=== PATIENT | female | born 1980 | race Caucasian/White ===

== ENCOUNTER → 2016-06-20 | Outpatient (CLI) | payer BC ==
[~2016-06-20] MED LIST: BCPILLS PO; CELE100C PO; GLC500; HYDR0.5T PO; HYDR200T5 PO; PRENTAB26 PO; VALA500T60 PO
== END | disposition home or self-care (01) ==
LOC: C.LAB 10:11
PROVIDERS: ATTEND Obstetrics & Gynecology
DX: Z34.01 Encounter for supervision of normal first pregnancy, first trimester (principal)

== ENCOUNTER → 2016-06-24 | Outpatient (CLI) | payer BC ==
[2016-06-28 14:42] LABS: CHLAMYDIA TRACH RNA*** NOT DETECTED (NOT DETECTED); GC (NEIS GONORRHOEAE)RNA** NOT DETECTED (NOT DETECTED)
== END | disposition home or self-care (01) ==
LOC: C.LABSPEC 14:38
PROVIDERS: ATTEND Obstetrics & Gynecology
DX: Z34.01 Encounter for supervision of normal first pregnancy, first trimester (principal)

== ENCOUNTER → 2016-07-04 | Outpatient (CLI) | payer BC ==
[2016-07-04 17:12] LABS: BASO % 0.2 %; BASO ABS # 0.02 K/uL (0-0.2); COMPLETE YES; EOS % 1.5 %; HEMATOCRIT 34.6 % (37-47); IG% 0.3 %; LYMPH % 19.3 %; LYMPH ABS # 1.89 K/uL (1.2-3.4); MEAN CORPUSCULAR HEMOGLOBIN 29.8 pg (25-34); MEAN CORPUSCULAR HGB CONC 33.8 g/dl (32-36); MEAN PLATELET VOLUME 10.5 fL (7.4-10.4); MONO % 6.4 %; NEUT % 72.3 %; PLATELET COUNT 250 K/uL (130-400); RED BLOOD COUNT 3.93 M/uL (4.2-5.4); WHITE BLOOD COUNT 9.78 K/uL (4.8-10.8)
[2016-07-04 17:23] LABS: ALT/SGPT 16 U/L (12-78); AST/SGOT 15 U/L (15-37); CREATININE 0.62 mg/dl (0.60-1.20)
[2016-07-04 17:25] LABS: ALKALINE PHOSPHATASE 69 U/L (45-117)
== END | disposition home or self-care (01) ==
LOC: C.LAB 16:20
PROVIDERS: ATTEND Anesthesiology
DX: Z79.899 Other long term (current) drug therapy (principal)

== ENCOUNTER → 2016-07-25 | Outpatient (CLI) | payer BC | END | disposition home or self-care (01) | LOC: C.LABSPEC 15:36 | PROVIDERS: ATTEND Obstetrics & Gynecology | DX: J02.9 Acute pharyngitis, unspecified (principal) ==

== ENCOUNTER → 2016-08-20 | Outpatient (CLI) | payer BC ==
[2016-08-20 09:37] LABS: BASO % 0.2 %; BASO ABS # 0.02 K/uL (0-0.2); COMPLETE YES; HEMATOCRIT 34.4 % (37-47); IG% 0.5 %; LYMPH % 14.6 %; LYMPH ABS # 1.41 K/uL (1.2-3.4); MEAN CELL VOLUME 87.8 fL (80-100); MEAN CORPUSCULAR HEMOGLOBIN 29.1 pg (25-34); MEAN CORPUSCULAR HGB CONC 33.1 g/dl (32-36); MEAN PLATELET VOLUME 9.9 fL (7.4-10.4); MONO % 4.2 %; NEUT % 79.5 %; PLATELET COUNT 234 K/uL (130-400); RED BLOOD COUNT 3.92 M/uL (4.2-5.4); WHITE BLOOD COUNT 9.65 K/uL (4.8-10.8)
[2016-08-20 11:43] LABS: GTGD 50 Grams
== END | disposition home or self-care (01) ==
LOC: C.LAB 07:57
PROVIDERS: ATTEND Obstetrics & Gynecology
DX: Z34.02 Encounter for supervision of normal first pregnancy, second trimester (principal)

== ENCOUNTER 2016-12-23 12:57 | Outpatient (CLI) | payer BC ==
[~2016-12-23] VITALS: Ht 165.1 cm; Wt 122.5 kg
[~2016-12-23 12:57] MED LIST changes: -GLC500; -HYDR200T5 PO; -PRENTAB26 PO; -VALA500T60 PO
[2016-12-23] MEDS ORDERED: PRENTAB26 PO (13:25)
[2016-12-23] MEDS ORDERED: GLC500 (13:25)
[2016-12-23 13:28] VITALS: Ht 165.1 cm; Wt 122.5 kg
--- NOTE | 2016-12-23 14:28 | DIAGNOSTIC IMAGING REPORT ---
LIMITED (US) HISTORY: 36 years-old Female bleeding at 34 weeks acute vaginal bleeding with . Initial exam. COMPARISON: None available. TECHNIQUE: Multiple real-time sonographic images of the deep pelvic structures were obtained transabdominally and transvaginally assessing grayscale appearance, M-mode analysis. FINDINGS: Single living intrauterine fetus is noted in a cephalic presentation. JOSE measures 15.8 cm. Heart rate is measured at 137 bpm. Cervix length measures 4.58 cm. Placenta appears normal. IMPRESSION: 1. Single living intrauterine gestation in cephalic presentation. 2. Normal sonographic appearance of the placenta and cervix. The above report was generated using voice recognition software. It may contain grammatical, syntax or spelling errors. Electronically signed by: Johny Everett M.D. 12/23/2016 2:27 PM Dictated Date/Time: 12/23/2016 2:24 PM
--- NOTE | 2016-12-23 14:36 | HISTORY & PHYSICAL EXAMINATION ---
DATE OF ADMISSION: 12/23/2016 CHIEF COMPLAINT: Abdominal tightness and vaginal bleeding. HISTORY OF PRESENT ILLNESS: The patient is a 36-year-old 1, para 0. General health is complicated by PCOD. Her due date for this is 02/02/2017. She has had no problems but she called stating she had vaginal bleeding and spotting and abdominal tightness. She was told to come to the [facility] for monitoring and evaluation. PAST MEDICAL HISTORY: She has no known drug allergies. PAST SURGICAL HISTORY: She had her right knee operated on. She had diagnostic laparoscopy and a D&C. MEDICAL HISTORY: She is on metformin. ALLERGIES: She has no known drug allergies. SOCIAL HISTORY: No smoking, no alcohol intake. Works at [employer]. FAMILY HISTORY: Mom is 68 in good health. Father 78 in good health, 1 brother in good health. REVIEW OF SYSTEMS: HEAD: No symptoms of frequent or severe headaches. EYES: No symptoms of blurred vision, double vision. EARS: No symptoms of frequent ear infection, difficulty hearing. NOSE: No symptoms of frequent nosebleeds, difficulty breathing through her nose. THROAT: No symptoms of frequent or severe sore throats, difficulty swallowing. RESPIRATORY SYSTEM: No history of asthma, chest pain, shortness of breath. PHYSICAL EXAMINATION: GENERAL: Well-developed, well-nourished 36-year-old white female; alert, oriented x3 and cooperative. No acute distress, appears stated age. EYES: Conjunctivae are pink. Sclerae white. No evidence of jaundice. EARS: Had normal light reflex bilaterally. HEART: Regular rhythm. S1 and S2 are normal. LUNGS: Clear to auscultation and percussion. ABDOMEN: Soft and nontender. There are no tender areas. PELVIC: Cervix to be long, closed, posterior, and uneffaced. On pelvic exam, vaginal bleeding was minimal. MUSCULOSKELETAL: Revealed no calf tenderness. IMPRESSIONS OF THIS CASE: Intrauterine at 34 weeks gestation. History of polycystic ovarian disease, rule out placenta previa, rule out early labor.
== END 2016-12-23 14:48 | disposition home or self-care (01) ==
LOC: C.OPB 12:57 → C.LD 12:57 → C.OPB 14:48
PROVIDERS: ATTEND Obstetrics & Gynecology
DX: O46.93 Antepartum hemorrhage, unspecified, third trimester (principal); R10.9 Unspecified abdominal pain; O09.513 Supervision of elderly primigravida, third trimester; E28.2 Polycystic ovarian syndrome; Z3A.34 34 weeks gestation of pregnancy

== ENCOUNTER 2017-01-20 15:26 | Outpatient (CLI) | payer BC ==
[~2017-01-20 15:26] MED LIST changes: -BCPILLS PO; -CELE100C PO; +GLC500; -HYDR0.5T PO; +PRENTAB26 PO
[2017-01-20] MEDS ORDERED: VALA500T60 PO (16:37)
[2017-01-21] MEDS ORDERED: HYDR200T5 PO (19:56)
== END 2017-01-20 16:18 | disposition home or self-care (01) ==
LOC: C.OPB 15:26 → C.LD 15:26 → C.OPB 16:18
PROVIDERS: ATTEND Obstetrics & Gynecology
DX: O99.89 Other specified diseases and conditions complicating pregnancy, childbirth and the puerperium (principal); R03.0 Elevated blood-pressure reading, without diagnosis of hypertension; Z3A.00 Weeks of gestation of pregnancy not specified

== ENCOUNTER 2017-01-21 18:25 | Inpatient (IN) | payer BC ==
[~2017-01-21] VITALS: Ht 165.1 cm; Wt 133.4 kg
[~2017-01-21 18:25] MED LIST changes: +VALA500T60 PO
[2017-01-21] MEDS ORDERED: HYDR200T5 PO (19:56)
[2017-01-21 20:03] VITALS: Ht 165.1 cm; Wt 133.4 kg
[2017-01-21] MEDS ORDERED: LACTATED RINGER'S 1000ML 1,000 ML IV PRN (20:32)
[2017-01-21 20:58] LABS: HEMATOCRIT 34.2 % (37-47); MEAN CELL VOLUME 84.9 fL (80-100); MEAN CORPUSCULAR HGB CONC 34.2 g/dl (32-36); MEAN PLATELET VOLUME 10.1 fL (7.4-10.4); PLATELET COUNT 253 K/uL (130-400); RED BLOOD COUNT 4.03 M/uL (4.2-5.4); WHITE BLOOD COUNT 13.25 K/uL (4.8-10.8)
[2017-01-21] MEDS ORDERED: PENICILLIN G POTASSIUM IV 6 MU in DEXTROSE 5% 250ML 250 ML IV ONE (21:00)
[2017-01-21] MEDS ORDERED: MISOPROSTOLTAB 50 MCG TAB PO ONE (21:00)
[2017-01-21] MEDS ORDERED: INFLUENZA ADMINISTRATION CHARGE ONE (21:30)
[2017-01-21] MEDS ORDERED: INFLUENZA VIRUS QUAD VACCINE 0.5 ML SYR IM. ONE (21:30)
[2017-01-22] MEDS: LACTATED RINGER'S 1000ML 1,000 ML IV SCH (02:04)
[2017-01-22] MEDS: PENICILLIN G POTASSIUM IV 3 MU in DEXTROSE 5% 100ML 100 ML IV PRN ×5 (06:04→21:32)
[2017-01-22] MEDS ORDERED: NURSING VERBAL MED ORDER ONE (14:30)
[2017-01-22] MEDS ORDERED: DINOPROSTONE 10 MG INSERT PV ONE (15:00)
[2017-01-22] MEDS ORDERED: MISOPROSTOLTAB 50 MCG TAB PO ONE (20:45)
[2017-01-23] MEDS ORDERED: MISOPROSTOLTAB 50 MCG TAB PO ONE ×2 (01:00→07:30)
[2017-01-23] MEDS: PENICILLIN G POTASSIUM IV 3 MU in DEXTROSE 5% 100ML 100 ML IV PRN ×6 (01:37→22:19)
[2017-01-23] MEDS ORDERED: LACTATED RINGER'S 1000ML 500 ML IV PRN ×2 (14:31→21:08)
[2017-01-23] MEDS ORDERED: OXYTOCIN 30 UNITS/500ML NSS IV PRN (14:45)
[2017-01-23] MEDS ORDERED: BUTORPHANOL TARTRATE 1 MG/ML VIAL ONE (18:01)
[2017-01-23] MEDS ORDERED: BUTORPHANOL TARTRATE 1 MG/ML VIAL IV PRN (18:15)
[2017-01-23] MEDS ORDERED: BUPIVACAINE 0.25% 30 ML VIAL ONE (20:12)
[2017-01-23] MEDS ORDERED: FENTANYL CITRATE INJ 50 MCG/1 ML 2 ML VIAL ONE (20:13)
[2017-01-23] MEDS ORDERED: EpHEDrine SULFATE INJ 50 MG/ML AMP ONE (20:13)
[2017-01-23] MEDS ORDERED: FENTANYL 2MCG/ML ROPIV 1.25MG/ML 100ML BAG EPI ONE (20:13)
[2017-01-23] MEDS ORDERED: NALOXONE HCL INJ 1 MG in SODIUM CHLORIDE 0.9% 1000ML 1,000 ML IV PRN ×4 (21:08)
[2017-01-23] MEDS ORDERED: PROMETHAZINE HCL INJ 25 MG in SODIUM CHLORIDE 0.9% 50ML 50 ML IV PRN (21:15)
[2017-01-23] MEDS ORDERED: EpHEDrine SULFATE INJ 50 MG/ML AMP IV PRN (21:15)
[2017-01-23] MEDS ORDERED: NALBUPHINE HCL INJ 10 MG/ML AMP IV PRN (21:15)
[2017-01-23] MEDS ORDERED: NALOXONE HCL INJ 0.4 MG/1 ML VIAL/CARP IV PRN (21:15)
[2017-01-23] MEDS ORDERED: ONDANSETRON INJ 2 MG/ML 2 ML VIAL IV PRN (21:15)
[2017-01-23] MEDS ORDERED: DiphenhydrAMINE HCL 50 MG/ML VIAL IV PRN (21:15)
[2017-01-23] MEDS ORDERED: FENTANYL 2MCG/ML ROPIV 1.25MG/ML 100ML BAG EPI PRN (21:15)
[2017-01-23] MEDS: LACTATED RINGER'S 1000ML 1,000 ML IV SCH (21:32)
[2017-01-24] VITALS (19 sets, daily range): BP systolic 116–127; BP diastolic 75–87; PULSE 95–106; TEMP 37–37.3; O2SAT 97–100
[2017-01-24] MEDS ORDERED: LIDOCAINE/EPINEPHRINE 2% 1:200,000 20 ML SDV ONE (02:36)
[2017-01-24] MEDS ORDERED: FENTANYL CITRATE INJ 50 MCG/1 ML 2 ML VIAL ONE (02:36)
[2017-01-24] MEDS ORDERED: CITRIC ACID/SODIUM CITRATE 15 ML UDC ONE (02:40)
[2017-01-24] MEDS ORDERED: CITRIC ACID/SODIUM CITRATE 15 ML UDC PO STA (02:42)
[2017-01-24] MEDS ORDERED: CEFOXITIN IV 2,000 MG in DEXTROSE 5% 50ML 50 ML IV STA (02:43)
[2017-01-24] MEDS ORDERED: OXYTOCIN INJ 10 UNITS/ML VIAL ONE (03:16)
[2017-01-24] MEDS ORDERED: MORPHINE SULFATE PF 2MG/2ML SYR ONE (03:29)
--- NOTE | 2017-01-24 04:10 | HISTORY & PHYSICAL EXAMINATION ---
DATE OF ADMISSION: 01/21/2017 CHIEF COMPLAINT: Toxemia of , nonreassuring heart rate tracing. HISTORY OF PRESENT ILLNESS: The patient is a 36-year-old 1, para 0. She has a history of polycystic ovarian disease. Her has been well dated. Her due date is 02/03/2017. She was brought in for induction after diagnosis of toxemia of . She ran a pressure of 140/90 for over a week and this was associated with 1+ protein and this was present for well over a week on multiple visits and it was despite the use of decreased activity and bed rest. She was brought in for induction at 38+ weeks, was given multiple medications for induction. I think, we started with oral Cytotec, then we went , then we went back to the Cytotec. On induction, her cervix was very unfavorable, was closed. We eventually got the cervix to open. Membranes were ruptured. At that time, fluid was clear. She then went to IV Pitocin stimulation. We also used an intrauterine pressure catheter and we were able to develop adequate contractions on the pressure catheter. She did make it up to about 7 cm and then had an arrest of labor and eventually began to have nonreassuring heart rate tracing with decelerations after each and every contraction. The Pitocin had to be turned off, oxygen was given and a was subsequently called. PAST MEDICAL HISTORY: She has no known drug allergies. PAST SURGICAL HISTORY: She had a diagnostic laparoscopic and a D&C. She had right knee surgery. MEDICAL HISTORY: She has history of PCOD, occasional migraines. SOCIAL HISTORY: No smoking. No alcohol intake. Works for [employer]. FAMILY HISTORY: Mom is 68 in good health, dad 70 in good health. One brother in good health. REVIEW OF SYSTEMS: Occasional migraine. PHYSICAL EXAMINATION: GENERAL: Well-developed, well-nourished 36-year-old white female, alert, oriented x3, and cooperative in no acute distress, appears stated age. EYES: Conjunctivae are pink. Sclerae white. No evidence of jaundice. EARS: Ears had normal light reflex bilaterally. NOSE: Nose had normal mucosa. Septum is midline. There were no polyps. THROAT: No erythema or evidence of infection. Teeth are in good state of repair. HEAD: Normocephalic, normal distribution of hair. NECK: Supple. Trachea midline. Thyroid is not enlarged. There is no adenopathy appreciated. Both carotids are of good intensity. CHEST: Clear to auscultation and percussion. No wheezes, rales or rhonchi appreciated. HEART: Had regular rhythm. S1 and S2 are normal. BREASTS: Normal. ABDOMEN: Soft and nontender. PELVIC: Revealed the cervix to be 100% effaced, 7 cm dilated, large amount of molding, -1 to -2 station. MUSCULOSKELETAL: Revealed no calf tenderness. IMPRESSIONS OF THIS CASE: Toxemia of , arrest of labor, and nonreassuring heart rate tracings.
[2017-01-24] MEDS ORDERED: SODIUM CHLORIDE 0.9% 1000ML 1,000 ML IV PRN (04:34)
[2017-01-24] MEDS ORDERED: NALOXONE HCL INJ 0.08 MG in SYRINGE 1.8 ML IV PRN (04:34)
[2017-01-24] MEDS ORDERED: LACTATED RINGER'S 1000ML 500 ML IV PRN (04:34)
[2017-01-24] MEDS ORDERED: NALOXONE HCL INJ 1 MG in SODIUM CHLORIDE 0.9% 1000ML 1,000 ML IV PRN ×4 (04:34)
--- NOTE | 2017-01-24 04:39 | Anesthesiology Progress Note ---
Anesthesia Post Op Note Date & Time Jan 24, 2017 at 04:39 Vital Signs Pain Intensity: 0.0 Notes Mental Status: alert / awake / arousable, participated in evaluation Pt Amnestic to Procedure: No Nausea / Vomiting: adequately controlled Pain: adequately controlled Airway Patency, RR, SpO2: stable & adequate BP & HR: stable & adequate Hydration State: stable & adequate Neuraxial Anesthesia: was administered, sensory block is resolving Anesthetic Complications: no major complications apparent
--- NOTE | 2017-01-24 04:39 | Anesthesia Procedure Note ---
Anesthesia Epidural Removal Nt Date & Time Jan 24, 2017 at 04:39 Vital Signs Pain Intensity: 0.0 Notes Mental Status: alert / awake / arousable, participated in evaluation Nausea / Vomiting: adequately controlled Pain: adequately controlled Airway Patency, RR, SpO2: stable & adequate BP & HR: stable & adequate Hydration State: stable & adequate Neuraxial Anesthesia: was administered Anesthetic Complications: no major complications apparent, pt satisfied with anesthetic care Epidural: removed without complications, with tip intact
[2017-01-24] MEDS ORDERED: MoRPHine SULFATE PF 1 MG/ML 10 ML AMP/VIAL EPI PRN (04:45)
[2017-01-24] MEDS ORDERED: DiphenhydrAMINE HCL 50 MG/ML VIAL IV PRN (04:45)
[2017-01-24] MEDS ORDERED: KETOROLAC TROMETHAMINE 30 MG/ML VIAL IV. PRN (04:45)
[2017-01-24] MEDS ORDERED: NALOXONE HCL 0.4 MG/1 ML VIAL/CARP IV PRN (04:45)
[2017-01-24] MEDS ORDERED: PROMETHAZINE HCL INJ 25 MG in SODIUM CHLORIDE 0.9% 50ML 50 ML IV PRN (04:45)
[2017-01-24] MEDS ORDERED: NALBUPHINE HCL INJ 10 MG/ML AMP IV PRN (04:45)
[2017-01-24] MEDS ORDERED: DC INTRASPINAL MORPHINE SCH (04:45)
[2017-01-24] MEDS ORDERED: ONDANSETRON INJ 2 MG/ML 2 ML VIAL IV PRN (04:45)
[2017-01-24] MEDS ORDERED: NO NARCOTICS OR SEDATIVES SCH (04:45)
[2017-01-24] MEDS ORDERED: EpHEDrine SULFATE INJ 50 MG/ML AMP IV PRN (04:45)
[2017-01-24] MEDS ORDERED: NURSING VERBAL MED ORDER ONE ×4 (05:45→23:45)
[2017-01-24] MEDS ORDERED: OXYTOCIN INJ 20 UNITS in LACTATED RINGER'S 1000ML 1,000 ML IV SCH (06:00)
[2017-01-24] MEDS ORDERED: LACTATED RINGER'S 1000ML 1,000 ML IV SCH (15:30)
[2017-01-25] MEDS: IBUPROFEN 600 MG TAB PO PRN ×4 (00:27→23:32)
[2017-01-25] MEDS: OXYCODONE/ACETAMINOPHEN 5-325 TAB PO PRN ×4 (00:28→23:31)
[2017-01-25 05:00] VITALS: TEMP 36.8
--- NOTE | 2017-01-25 08:39 | Progress Note ---
Subjective Jan 25, 2017. Subjective conversation w/ patient Ambulation: ambulating normally Voiding: no voiding problems Passing Gas: Yes Diet Tolerance: Regular Diet Lochia: Small Feeding Type: Breast Feeding Review of Systems Constitutional: + fever Objective Vital Signs Date Time Temp Pulse Resp B/P (MAP) Pulse Ox O2 Delivery O2 Flow Rate FiO2 01/25/17 05:00 36.8 01/24/17 23:05 98 Room Air 01/24/17 23:05 37.3 106 20 126/87 (100) 98 Room Air 01/24/17 22:30 18 98 01/24/17 21:30 20 98 01/24/17 20:30 18 99 01/24/17 20:00 37.0 106 18 125/75 (92) 98 Room Air 01/24/17 19:30 17 98 01/24/17 18:30 16 99 01/24/17 17:30 16 99 01/24/17 16:30 16 99 01/24/17 16:00 99 Room Air 01/24/17 16:00 37.2 95 18 116/78 (91) 99 Room Air 01/24/17 15:30 16 99 01/24/17 14:30 18 99 01/24/17 13:30 18 99 01/24/17 12:30 18 99 01/24/17 12:00 37.1 96 18 119/77 (91) 99 Room Air 01/24/17 11:30 18 100 01/24/17 10:30 18 99 01/24/17 09:30 18 97 Physical Exam General Appearance: WELL-APPEARING Abdomen: normal bowel sounds, non tender Fundus: Firm, Non-Tender Incision Description: Clean, Dry & Intact Extremities: no pedal edema, no calf tenderness Assessment and Plan Post-Op Day#: 1 Continue Routine Care: bandage removed
[2017-01-25 08:45] VITALS: BP 110/70; PULSE 76; TEMP 36.5
[2017-01-25 15:00] VITALS: BP 118/76; PULSE 94; TEMP 36.9
[2017-01-25] MEDS ORDERED: NURSING VERBAL MED ORDER ONE (17:00)
[2017-01-25] MEDS: HYDROCORTISONE 1% CR 30 GM TUBE EXT PRN (23:37)
[2017-01-25 23:40] VITALS: BP 126/73; PULSE 91; TEMP 36.6; O2SAT 96
[2017-01-26] MEDS: OXYCODONE/ACETAMINOPHEN 5-325 TAB PO PRN ×3 (06:25→23:51)
[2017-01-26] MEDS: IBUPROFEN 600 MG TAB PO PRN ×3 (06:25→23:50)
[2017-01-26 07:50] VITALS: BP 122/78; PULSE 80; TEMP 36.4
--- NOTE | 2017-01-26 12:15 | Progress Note ---
Subjective Jan 26, 2017. Subjective conversation w/ patient Ambulation: ambulating normally Voiding: no voiding problems Passing Gas: Yes Diet Tolerance: Regular Diet Lochia: Small Feeding Type: Breast Feeding Review of Systems Constitutional: + fever Objective Vital Signs Date Time Temp Pulse Resp B/P (MAP) Pulse Ox O2 Delivery O2 Flow Rate FiO2 01/26/17 07:50 36.4 80 16 122/78 (93) Room Air 01/26/17 07:50 Room Air 01/25/17 23:40 36.6 91 18 126/73 (90) Room Air 01/25/17 23:40 96 Room Air 01/25/17 15:00 36.9 94 18 118/76 (90) Room Air 01/25/17 15:00 Room Air Physical Exam General Appearance: WELL-APPEARING Respiratory/Chest: lungs clear Fundus: Firm, Non-Tender Incision Description: Clean, Dry & Intact Extremities: no pedal edema, no calf tenderness Assessment and Plan Post-Op Day#: 2
[2017-01-26 15:30] VITALS: BP 132/80; PULSE 96; TEMP 36.6
[2017-01-26] MEDS: DOCUSATE SODIUM 100 MG CAP PO PRN ×2 (15:44→19:57)
[2017-01-26] MEDS: HYDROCORTISONE 1% CR 30 GM TUBE EXT PRN ×2 (15:44→19:57)
[2017-01-26 23:40] VITALS: BP 117/76; PULSE 80; TEMP 36.7
[2017-01-27 06:31] LABS: HEMATOCRIT 24.3 % (37-47)
[2017-01-27 07:35] VITALS: BP 112/76; PULSE 78; TEMP 36.6; O2SAT 99
[2017-01-27] MEDS: IBUPROFEN 600 MG TAB PO PRN (08:32)
--- NOTE | 2017-01-27 09:17 | Progress Note ---
Subjective Jan 27, 2017. Subjective conversation w/ patient Ambulation: ambulating normally Voiding: no voiding problems Passing Gas: Yes Diet Tolerance: Regular Diet Lochia: Small Feeding Type: Breast Feeding Review of Systems Constitutional: + fever Objective Vital Signs Date Time Temp Pulse Resp B/P (MAP) Pulse Ox O2 Delivery O2 Flow Rate FiO2 01/26/17 23:40 Room Air 01/26/17 23:40 36.7 80 18 117/76 (90) Room Air 01/26/17 15:30 Room Air 01/26/17 15:30 Room Air 01/26/17 15:30 36.6 96 18 132/80 (97) Room Air 01/26/17 15:30 36.6 96 18 132/80 (97) Room Air Physical Exam General Appearance: WELL-APPEARING Respiratory/Chest: lungs clear Abdomen: normal bowel sounds, non tender Fundus: Firm, Non-Tender Incision Description: Clean, Dry & Intact Extremities: no pedal edema, no calf tenderness Laboratory Results Last 24 Hours Test 01/27/17 06:16 Hemoglobin 8.1 g/dL Hematocrit 24.3 % Assessment and Plan Post-Op Day#: 3
--- NOTE | 2017-01-27 09:19 | Discharge Instructions ---
Discharge Instructions Date of Service Jan 27, 2017. Admission Reason for Admission: IUP Discharge Discharge Diagnosis / Problem: toxemia Hgb 8.1 Discharge Goals Goal(s): Routine recovery after Activity Recommendations Activity Limitations: as noted below ACTIVITY RECOMMENDATIONS: * Gradual return to full activity over the next 2-3 weeks. * No lifting - nothing heavier than baby over the next 2-3 weeks. * Do not engage in vigorous exercise, sexual activity or sports for 6 weeks. * Do not drive or operate any motorized equipment for 14 days. * You may shower/bathe daily. DIET: Resume Previous Diet If Breast-feeding: * Increase caloric intake by 500 calories, eat 3 well balanced meals, 2 high protein snacks a day and drink 6-8 8oz. glasses of fluid per day. BREAST CARE: If you are not breast feeding: * Wear a supportive bra 24 hours a day for one to two weeks. * Avoid stimulating your breasts and nipples as much as possible during the first few weeks after delivery. * When taking a shower, have the warm water hit your back, not breasts. * When your breasts feel full, apply ice packs. Usually three to four times a day helps ease the discomfort. * Take a mild pain medication (Tylenol / Motrin) when you are uncomfortable. If breast feeding: * Use breast milk to lubricate nipples. Lansinoh cream may be used for sore nipples. You do not need to remove cream prior to breast feeding. If using a different brand of cream, check the label for directions regarding removal of cream prior to nursing. * Wear a supportive bra. * If having problems with breasts or breast feeding, call a groundwater consultant or your health care provider. VITAMINS: * One tablet daily. Continue taking while or until you have your check up in 6 weeks. SPECIAL CARE INSTRUCTIONS: * Vaginal rest (no tampons, douching, intercourse) until after doctor's visit. * control as discussed with doctor. * Verbalizes understanding of car seat law as reviewed with patient by nursing. * Car Seat hand-out given and reviewed with patient by nursing. * Shaken baby information reviewed with patient by nursing. Call you doctor if: * Heavy bleeding (saturating a pad an hour) or passing clots the size of your fist. Bleeding has a foul smelling odor. * A fever greater than 100.4 degrees F (38 degrees C) on two occasions four hours apart and/or chills. * Unusual pain in the pelvic or vaginal areas. Pain should improve each day . * Call the doctor for any increased redness, drainage or swelling around the incision and any pain unrelieved by prescribed pain medication. * Signs and symptoms of phlebitis(possible blood clots forming in the veins): leg pain, warm, red or swollen area on leg. * "Baby Blues" lasting longer than two weeks. If you have any questions or concerns, call your health care practitioner at [phone]. FOLLOW-UP VISIT: Follow-up visit for examination in 6 weeks. Incision check (staple removal) in 1 week. Please call office at [phone] if not already scheduled. . Instructions / Follow-Up Instructions / Follow-Up ACTIVITY RECOMMENDATIONS: * Gradual return to full activity over the next 2-3 weeks. * No lifting - nothing heavier than baby over the next 2-3 weeks. * Do not engage in vigorous exercise, sexual activity or sports for 6 weeks. * Do not drive or operate any motorized equipment for 14 days. * You may shower/bathe daily. DIET: Resume Previous Diet If Breast-feeding: * Increase caloric intake by 500 calories, eat 3 well balanced meals, 2 high protein snacks a day and drink 6-8 8oz. glasses of fluid per day. BREAST CARE: If you are not breast feeding: * Wear a supportive bra 24 hours a day for one to two weeks. * Avoid stimulating your breasts and nipples as much as possible during the first few weeks after delivery. * When taking a shower, have the warm water hit your back, not breasts. * When your breasts feel full, apply ice packs. Usually three to four times a day helps ease the discomfort. * Take a mild pain medication (Tylenol / Motrin) when you are uncomfortable. If breast feeding: * Use breast milk to lubricate nipples. Lansinoh cream may be used for sore nipples. You do not need to remove cream prior to breast feeding. If using a different brand of cream, check the label for directions regarding removal of cream prior to nursing. * Wear a supportive bra. * If having problems with breasts or breast feeding, call a groundwater consultant or your health care provider. VITAMINS: * One tablet daily. Continue taking while or until you have your check up in 6 weeks. SPECIAL CARE INSTRUCTIONS: * Vaginal rest (no tampons, douching, intercourse) until after doctor's visit. * control as discussed with doctor. * Verbalizes understanding of car seat law as reviewed with patient by nursing. * Car Seat hand-out given and reviewed with patient by nursing. * Shaken baby information reviewed with patient by nursing. Call you doctor if: * Heavy bleeding (saturating a pad an hour) or passing clots the size of your fist. Bleeding has a foul smelling odor. * A fever greater than 100.4 degrees F (38 degrees C) on two occasions four hours apart and/or chills. * Unusual pain in the pelvic or vaginal areas. Pain should improve each day . * Call the doctor for any increased redness, drainage or swelling around the incision and any pain unrelieved by prescribed pain medication. * Signs and symptoms of phlebitis(possible blood clots forming in the veins): leg pain, warm, red or swollen area on leg. * "Baby Blues" lasting longer than two weeks. If you have any questions or concerns, call your health care practitioner at [phone]. FOLLOW-UP VISIT: Follow-up visit for examination in 6 weeks. Incision check (staple removal) in 1 week. Please call office at [phone] if not already scheduled. Current Hospital Diet Patient's current hospital diet: Regular OB Diet Discharge Diet Recommended Diet: Regular Diet Procedures Procedures Performed: CAESAREAN SECTION DEL VIABLE FEMALE AT 0326 Pending Studies Studies pending at discharge: no Medical Emergencies . Who to Call and When: Medical Emergencies: If at any time you feel your situation is an emergency, please call 911 immediately. . Non-Emergent Contact Non-Emergency issues call your: Costume Cutter Call Non-Emergent contact if: temperature is above 100.5 . . "Provider Documentation" section prepared by Emir Clayton. . VTE Core Measure Inpt VTE Proph given/why not?: Treatment not indicated
--- NOTE | 2017-01-27 09:48 | DISCHARGE SUMMARY ---
Mrs. Capone was admitted at about 38 weeks 3 days with a history of toxemia, blood pressures in the range of 140/90 for well over a week and started to spill proteinuria. These pressures and proteinuria were documented on multiple visits on different days. She had a long attempt at induction, it included p.o. Cytotec at least 2 doses, Cervidil tape, and eventually we ruptured her membranes, went to IV Pitocin, did an intrauterine pressure catheter and pitted her. She eventually had an arrest of labor despite the IUPC and the pit. She underwent primary low segment section, delivered live infant in good condition. Preoperative hemoglobin 11.7, hematocrit 34.2; postoperatively, hemoglobin fell to 8.1, hematocrit 24.3. She did well postoperatively. It should be noted that preoperatively she was receiving penicillin for having been beta strep positive on screening and she also was on Valtrex p.o. 500 mg twice a day with a history of herpes. Postoperatively, she did excellent, bowel sounds returned promptly, she remained afebrile. On the third postoperative day, she was ambulating well, eating well. Incision was clean and dry. Pain was well controlled with a combination of Percocet and Motrin. She was discharged. She will be followed in the office and told to come back in about 4 or 5 days for removal of emma.
[2017-01-27] MEDS: DOCUSATE SODIUM 100 MG CAP PO PRN (10:09)
[2017-01-27 13:04] VITALS: BP_DIAS 76; PULSE 78; TEMP 36.6
--- NOTE | 2017-02-05 10:56 | OPERATIVE REPORT ---
DATE OF OPERATION: 02/05/2017 PROCEDURE: Primary low segment section. INDICATIONS FOR SURGERY: Arrest of labor. PREOPERATIVE DIAGNOSIS: Cephalopelvic disproportion. POSTOPERATIVE DIAGNOSES: Cephalopelvic disproportion. SURGEON: Tami Clayton MD. MEAT PACKER: Dr. Bae. ESTIMATED BLOOD LOSS: 700 mL. ANESTHESIA: Epidural. OPERATIVE FINDINGS AND PROCEDURE: The patient was brought to the OR table, correctly identified by armband and conversation. Oleary catheter was inserted aseptically in the bladder and connected to gravity drainage. Compression stockings were applied. Lower abdomen and upper thighs were painted with an alcohol based sterilizing solution, draped in usual sterile fashion. Pfannenstiel incision was made, carried down to the anterior fascia by sharp dissection. Hemostasis was secured by electrocauterization. Fascia was incised transversely, from underlying muscle by blunt and sharp dissection. Recti muscles were in the midline exposing the peritoneum which was carefully raised and entered. Incision was made above the vesicouterine fold. Bladder was undermined bluntly and pushed out of the operative field. Lower uterine segment was scored with a knife then entered bluntly with the scissors. Some slightly meconium stained fluid was noted. The incision was then extended laterally, bluntly and then the tumbling machine operator's hand was inserted into the uterine cavity and with a moderate amount of difficulty, I was able to dislodge the head and bring it out through the abdomen. was then suctioned through the mouth and the nose by the manager knowledge who was scrubbed and present at time of delivery. Cord was clamped and cut. Cord blood was taken. Placenta was removed manually. Uterus, tubes, and ovaries were brought out through the incision. There were some lateral extension of the incision which caused heavier than normal bleeding and the myometrial defect was approximated with a continuous chromic gut suture. Following this, a second layer of Vicryl suture was placed over this in a continuous fashion and the fascial layer was approximated and then the peritoneal edges were restored with running 3-0 chromic. The pelvis was cleansed of all blood clots and debris. Uterus, tubes, and ovaries were reinserted into the abdominal cavity, careful anatomical approximation of the anterior abdominal wall. Peritoneum was closed with a mattress suture of chromic catgut. Recti muscles were approximated in interrupted [id number] suture of chromic catgut. The fascia was closed with continuous interlocking suture of Vicryl on each side, tied in the midline. SubQ was approximated with continuous plain. The skin edges were approximated with staple clips. I attest to the content of the Intraoperative Record and any orders documented therein. Any exceptions are noted below. ALICIA
== END 2017-01-27 13:30 | disposition home or self-care (01) | DRG 766 ==
LOC: C.OPB 18:25 → C.LD 18:26 → C.OBG 01-24 07:06
PROVIDERS: ADMIT Obstetrics & Gynecology; ATTEND Obstetrics & Gynecology
PROC: 10D00Z1 Extraction of Products of Conception, Low, Open Approach (ICD-10-PCS; principal; 2017-01-21)
PROC: 10907ZC Drainage of Amniotic Fluid, Therapeutic from Products of Conception, Via Natural or Artificial Opening (ICD-10-PCS; principal; 2017-01-21)
PROC: 3E0P7GC Introduction of Other Therapeutic Substance into Female Reproductive, Via Natural or Artificial Opening (ICD-10-PCS; principal; 2017-01-21)
DX: O14.94 Unspecified pre-eclampsia, complicating childbirth (principal); O76 Abnormality in fetal heart rate and rhythm complicating labor and delivery; O62.1 Secondary uterine inertia; Z37.0 Single live birth; Z3A.38 38 weeks gestation of pregnancy

== ENCOUNTER 2020-11-03 07:29 | Inpatient (IN) ==
--- NOTE | 2020-10-27 13:14 | Anesthesiology Consultation ---
Date of Service October 27, 2020 Assessment & Plan (1) Encounter for pre-operative examination: Chart Review Chart Review: entry level sales associate initiated Per nursing assessment 10/27/2020, patient denies any recent travel. No known Covid infection in the past 90 days. No known Covid positive contacts or Covid related symptoms. Pt aware of need for preop Covid testing= will await results. Emergency section 01/24/2017 = epidural was bolused for . History Surgery Operation Date: 11/03/20 11:00 Proposed Procedures p Section in JUAN C Clayton MD s Bilateral Tubal Ligation in JUAN C Clayton MD Height/Weight Height: 5 ft 5 in Weight: 133.356 kg Allergies Allergy/AdvReac Type Severity Reaction Status Date / Time No Known Allergies Allergy Verified 10/27/20 11:41 Medications Home Medications Medication Instructions Recorded Confirmed Last Taken Multivit/Min/Iron/Fol Ac/Pren 1 tab PO QAM #0 tab 12/23/16 10/27/20 10/25/20 ( Vitamin) HYDROXYCHLOROQUINE SULFATE 200 mg PO BID #0 tab 01/21/17 10/27/20 10/25/20 08:00 (PLAQUENIL) labetalol 200 mg PO TID 10/25/20 10/27/20 10/25/20 aspirin [Aspir-81] 81 mg PO QAM 10/27/20 10/27/20 Unknown calcium carbonate [Tums] 300 mg PO BID PRN 10/27/20 10/27/20 Unknown Past Medical History Medical History Arthritis of hand Endometriosis determined by laparoscopy Heartburn with History of migraine headaches Hypertension with Inflammatory arthritis Past Family History Family History Father Diabetes mellitus, type 2 Grandfather (Maternal) Slow to wake up after anesthesia Past Surgical History Surgical History History of History of D&C History of knee surgery right knee History of laparoscopy History of left knee surgery History of wisdom tooth extraction Social History Smoking Status: Former smoker Do You Dip or Chew Tobacco: No Smoking End Date: quit in early 20s Hx Alcohol Use: No (not currently) Hx Substance Use: No substance use type: does not use
--- NOTE | 2020-10-31 17:16 | History and Physical Report ---
DATE OF NOTE: 10/31/2020. CHIEF COMPLAINT: Intrauterine at 38 weeks' gestation, previous , hypertension on m edication. HISTORY OF PRESENT ILLNESS: The patient is a 39-year-old 2, para 1. Her general health is g ood. She has been on labetalol during her present and also on baby aspirin. This was start ed in the first trimester. We initially started her on 100 mg of labetalol twice a day, then it was 3 times a day and then eventually ended up with 200 mg 3 times a day. She has also been getting week ly NSTs. She was well dated with a first trimester ultrasound. Her due date 11/17/2020. Her obstetrical history is as follows: In 2017, she was admitted for induction due to hypertension a t 37 weeks. She had a failed induction after 5 days and had a due to distress for a 6 -pound 8-ounce female. Presently as previously stated, she is on labetalol 200 mg 3 times a day to co ntrol her blood pressure and she has also been on baby aspirin daily, which she has recently stopped. Presently, being scheduled for repeat low segment section. Patient also requests permanent sterilization at the same time the C-sections done. She has been made aware of the procedure tubal ligation, including the fact that this procedure is intended to result in permanent and irreversible sterility that there is occasional failures to this procedure, which results in ectopic pregnancies. PAST MEDICAL HISTORY: She is a female in good health. PAST SURGICAL HISTORY: She is status post , status post diagnostic lap, status post left kn ee surgery. MEDICAL HISTORY: She has no hypertensive meds when she is not . SOCIAL HISTORY: No smoking. No excessive alcohol intake. Works at [email or web address]. FAMILY HISTORY: Mom is 72 in good health. Father 74, has diabetes. She has one brother in good hea lth. REVIEW OF SYSTEMS: HEAD: No symptoms of frequent or severe headaches. EYES: No symptoms of blurred vision, double vision. EARS: No symptoms of frequent ear infections, difficulty hearing. NOSE: No symptoms of frequent nosebleeds, difficulty breathing through her nose. THROAT: No symptoms of frequent or severe sore throats, difficulty swallowing. RESPIRATORY SYSTEM: No history of asthma, chest pain, shortness of breath. PHYSICAL EXAMINATION: GENERAL: Well-developed, well-nourished 39-year-old white female, alert, oriented x3, and cooperativ e with the examination. She is in no acute distress, appears stated age. HEENT: Eyes: Conjunctivae are pink. Sclerae white, no evidence of jaundice. Ears had normal light reflex bilaterally. Nose had normal mucosa. Septum is midline. There were no polyps. Throat had no erythema or evidence of infection. Teeth are in good state of repair. Head was normocephalic, no rmal distribution of hair. NECK: Supple. Trachea midline. Thyroid is not enlarged. There is no adenopathy appreciated. Both carotids are of good intensity. CHEST: Clear to auscultation and percussion, wheezes, rales or rhonchi appreciated. CARDIOVASCULAR: Heart had a regular rhythm. S1 and S2 are normal. BREAST: Exam was normal. ABDOMEN: Soft and nontender. Estimated weight of over 8 pounds. There is a well-healed Pfann enstiel scar. PELVIC EXAM: Revealed the cervix to be posterior closed, vertex presentation. MUSCULOSKELETAL: Examination revealed no calf tenderness. IMPRESSIONS OF THIS CASE: Intrauterine at 39 weeks' gestation, status post previous C-secti on, status post diagnostic lap, status post left knee surgery, hypertension of , intrauterin e at 38 weeks' gestation, desire for permanent sterilization. Job ID: [id number]
[2020-11-03] MEDS ORDERED: LACTATED RINGER'S 1,000 ML IV SCH ×2 (08:15→14:00)
[2020-11-03 08:40] LABS: Basophils # (auto) 0.02 K/uL (0-0.2); Basophils % (auto) 0.2 %; Eosinophils # (auto) 0.13 K/uL (0-0.5); Eosinophils % (auto) 1.4 %; Hematocrit (blood only) 31.2 % (37-47); Immature Granulocytes # (auto) 0.02 K/uL (0.00-0.02); Immature Granulocytes % (auto) 0.2 %; Lymphocytes # (auto) 1.33 K/uL (1.2-3.4); Lymphocytes % (auto) 14.8 %; Mean Corpuscular Hemoglobin 28.7 pg (25-34); Mean Corpuscular Hgb Conc 32.1 g/dL (32-36); Mean Corpuscular Volume 89.7 fL (80-100); Mean Platelet Volume 10.1 fL (7.4-10.4); Monocytes # (auto) 0.57 K/uL (0.11-0.59); Monocytes % (auto) 6.3 %; Neutrophils # (auto) 6.91 K/uL (1.4-6.5); Neutrophils % (auto) 77.1 %; Platelet Count 204 K/uL (130-400); RDW Coefficient of Variation 15.2 % (11.5-14.5); RDW Standard Deviation 49.4 fL (36.4-46.3); Red Blood Count 3.48 M/uL (4.2-5.4); White Blood Count 8.98 K/uL (4.8-10.8)
[2020-11-03 08:51] LABS: INR 0.9 (0.9-1.1); Partial Thromboplastin Time 26.5 Seconds (21.0-31.0); Prothrombin Time 9.5 Seconds (9.0-12.0)
[2020-11-03 08:58] LABS: Alanine Aminotransferase 26 U/L (12-78); Albumin Level 2.4 gm/dl (3.4-5.0); Aspartate Aminotransferase 21 U/L (15-37); BUN Creatinine Ratio 17.3 (10-20); Bilirubin Direct < 0.1 mg/dl (0-0.2); Blood Urea Nitrogen 10 mg/dl (7-18); Calcium 8.6 mg/dl (8.5-10.1); Carbon Dioxide 21 mmol/L (21-32); Chloride 112 mmol/L (98-107); Creatinine Clr Calc Pharmacy 186.4 ml/min; Est GFR (African American) 136.1 ml/min; Est GFR (Non-African American) 117.5 ml/min; Glucose 72 mg/dl (70-99); Potassium 4.1 mmol/L (3.5-5.1); Sodium 139 mmol/L (136-145)
[2020-11-03] MEDS ORDERED: cefOXitin 2,000 MG in DEXTROSE 5% 50 ML IV SCH (09:00)
[2020-11-03] MEDS ORDERED: CITRIC ACID/SODIUM CITRATE 15 ML UDC PO SCH (09:00)
[2020-11-03 09:01] LABS: Albumin Globulin Ratio 0.6 (0.9-2); Alkaline Phosphatase 149 U/L (45-117); Bilirubin,Total 0.4 mg/dl (0.2-1); Total Protein 6.4 gm/dl (6.4-8.2)
[2020-11-03] MEDS ORDERED: ONDANSETRON INJ 2 MG/ML 2 ML VIAL IV PRN (11:10)
[2020-11-03] MEDS ORDERED: KETOROLAC 30 MG/ML VIAL IV PRN (11:10)
[2020-11-03] MEDS ORDERED: NALOXONE HCL 1 MG in SODIUM CHLORIDE 0.9% 1000ML 1,000 ML IV PRN (11:10)
[2020-11-03] MEDS ORDERED: ePHEDrine sulfate 50 MG/ML AMP IV PRN (11:10)
[2020-11-03] MEDS ORDERED: LACTATED RINGER'S 500 ML IV PRN (11:10)
[2020-11-03] MEDS ORDERED: diphenhydrAMINE 50 MG/ML VIAL IV PRN (11:10)
[2020-11-03] MEDS ORDERED: NALOXONE HCL 0.08 MG in SYRINGE 1.8 ML IV PRN (11:10)
[2020-11-03] MEDS ORDERED: NALOXONE HCL 0.4 MG/1 ML VIAL/CARP IV PRN (11:10)
[2020-11-03] MEDS ORDERED: MoRPHine SULFATE PF 1 MG/ML 10 ML AMP/VIAL INT SPINAL ONE (11:10)
[2020-11-03] MEDS ORDERED: NALBUPHINE HCL INJ 10 MG/ML AMP IV PRN (11:10)
[2020-11-03] MEDS ORDERED: PROMETHAZINE HCL 25 MG in SODIUM CHLORIDE 0.9% 50 ML IV PRN ×2 (11:10→13:59)
[2020-11-03] MEDS ORDERED: MoRPHine SULFATE 2 MG/ML CARP IV PRN (11:10)
[2020-11-03] MEDS ORDERED: SODIUM CHLORIDE 0.9% 1000ML 1,000 ML IV SCH (11:15)
[2020-11-03] MEDS ORDERED: NO NARCOTICS OR SEDATIVES SCH (11:15)
[2020-11-03] MEDS ORDERED: DC INTRASPINAL MORPHINE SCH (11:15)
[2020-11-03] MEDS ORDERED: MoRPHine SULFATE PF 1 MG/ML 10 ML AMP/VIAL ONE (11:18)
[2020-11-03] MEDS ORDERED: OXYTOCIN 10 UNITS/ML VIAL ONE (11:18)
[2020-11-03] MEDS ORDERED: fentaNYL citrate 100 MCG/2 ML VIAL ONE (11:18)
--- NOTE | 2020-11-03 11:49 | History & Physical Bridge Note ---
Date of Service November 03, 2020 History & Physical Bridge Note I have examined the patient, reviewed the History & Physical and in the interval since the performance of the History & Physical I have noted the following changes of clinical significance: no changes noted
[2020-11-03] MEDS ORDERED: LIDOCAINE 2% LOCAL 50 ML VIAL INFIL ONE (13:36)
[2020-11-03] MEDS ORDERED: OXYTOCIN 10 UNITS/ML VIAL IM ONE (13:44)
[2020-11-03] MEDS ORDERED: SENNA 8.6 MG TAB PO PRN (13:59)
[2020-11-03] MEDS ORDERED: HYDROCORTISONE ACETATE 25 MG SUPP PR PRN (13:59)
[2020-11-03] MEDS ORDERED: BENZOCAINE 20% AER SPR 82.5 GM CAN EXT PRN (13:59)
[2020-11-03] MEDS ORDERED: SUPERCREAM 0.870% 15 GM JAR EXT PRN (13:59)
[2020-11-03] MEDS ORDERED: ZOLPIDEM TARTRATE 5 MG TAB PO PRN (13:59)
[2020-11-03] MEDS ORDERED: MAGNESIUM HYDROXIDE SUSP 30 ML UDC PO PRN (13:59)
--- NOTE | 2020-11-03 14:04 | Post Operative Brief Note ---
Immediate Post Op Note v1 Date of Surgery November 03, 2020 Pre & Post Diagnosis Operation Date: 11/03/20 09:20 Pre-Op Diagnosis: ntrauterine at 39 weeks' gestation, status post previous , status post diagnostic lap, status post left knee surgery, hypertension of , intrauterine at 38 weeks' gestation, desire for permanent sterilization. Post-Op Diagnosis: ntrauterine at 39 weeks' gestation, status post previous , status post diagnostic lap, status post left knee surgery, hypertension of , intrauterine at 38 weeks' gestation, desire for permanent sterilization. Delivery of live male at 1238. I identified the patient and participated in the time-out.: Yes Procedure Operation Date: 11/03/20 09:20 Actual Procedures p Section in LD(Bilateral) - Emir Clayton MD s Bilateral Tubal Ligation in LD - Emir Clayton MD Surgeon Emir Clayton MD [employer] Dr Bae Estimated Blood Loss 750 Findings Consistent with Post-Op Diagnosis normal tubes and ovaries Drains Oleary Catheter (Inserted after spinal anesthesia, draining clear yellow urine. ) Anesthesia Type MAC Spinal Regional Complications none Disposition Disposition: Recovery Room
[2020-11-03] MEDS: OXYTOCIN 20 UNITS in LACTATED RINGER'S 1,000 ML IV SCH ×2 (14:55→22:36)
--- NOTE | 2020-11-03 16:43 | Anesthesiology Progress Note ---
Date of Service November 03, 2020 Anesthesia Post Procedure Vital Signs Vital Signs: Temp Pulse Resp BP Pulse Ox 11/03/20 16:12 86 131/60 11/03/20 16:08 66 100 11/03/20 16:05 77 123/58 L 11/03/20 16:03 77 99 11/03/20 15:58 76 98 11/03/20 15:55 92 H 129/62 11/03/20 15:53 97 H 99 11/03/20 15:48 79 100 11/03/20 15:45 98 H 128/56 L 11/03/20 15:43 76 99 11/03/20 15:38 81 99 11/03/20 15:36 67 127/55 L 11/03/20 15:33 76 99 11/03/20 15:28 70 100 11/03/20 15:23 96 H 99 11/03/20 15:18 78 99 11/03/20 15:16 71 142/64 H 11/03/20 15:13 94 H 99 11/03/20 15:08 93 H 100 11/03/20 15:06 93 H 156/86 H 11/03/20 15:03 96 H 100 11/03/20 14:58 95 H 100 11/03/20 14:55 86 18 120/58 L 11/03/20 14:53 92 H 100 11/03/20 14:48 97 H 100 11/03/20 14:46 100 H 134/79 11/03/20 14:45 18 11/03/20 14:43 87 100 11/03/20 14:36 83 93/63 L 11/03/20 14:35 18 11/03/20 14:25 74 18 121/60 11/03/20 14:15 18 11/03/20 14:14 92 H 118/56 L 11/03/20 14:05 36.5 C 74 18 117/61 11/03/20 11:50 36.7 C 18 11/03/20 11:43 77 126/60 11/03/20 11:00 18 11/03/20 08:55 36.7 C 80 125/69 11/03/20 08:30 18 11/03/20 07:42 80 125/69 11/03/20 07:39 36.7 C 18 Transfer of Care Handoff Completed per policy Notes Mental Status: alert / awake / arousable and participated in evaluation Patient Amnestic to Procedure: Yes Nausea / Vomiting: adequately controlled Pain: adequately controlled Airway Patency, RR, SpO2: stable & adequate BP & HR: stable & adequate Hydration State: stable & adequate Anesthetic Complications: no major complications apparent and Pt Satisfied with anesthetic care
[2020-11-03] MEDS: SIMETHICONE 80 MG CHEW PO SCH ×2 (17:48→21:31)
--- NOTE | 2020-11-03 18:23 | Operative Report (OR) ---
DATE OF PROCEDURE: 11/03/2020. PROCEDURE PERFORMED: Repeat low segment section and bilateral tubal ligation. INDICATIONS FOR SURGERY: Prior section, desire for permanent sterilization, hypertension, on labetalol. PREOPERATIVE DIAGNOSES: Desire for permanent sterilization, previous section, hypertension. POSTOPERATIVE DIAGNOSES: Desire for permanent sterilization, previous section, hypertension ; delivered live infant. SURGEON: Tami Clayton MD. CUSTOMER CONTACT SALES ASSOCIATE: Isabel Chiu MD. ESTIMATED BLOOD LOSS: 750 mL. ANESTHESIA: Spinal. OPERATIVE FINDINGS AND PROCEDURE: The patient was brought to the OR table, correctly identified by a rmband and conversation. Spinal anesthesia was administered. She was placed on the table. Compress ion stockings were applied. Oleary catheter was inserted aseptically in the bladder, connected to gra vity drainage. Lower abdomen was painted with an alcohol based sterilizing solution after draping in the usual sterile fashion. The adequacy of the anesthesia was tested and found to be good and then an incision was made through a previous Pfannenstiel incisional scar. Incision was carried down to t he anterior fascia. Hemostasis was secured by electrocauterization. Fascia was incised transversely , from the underlying muscle by blunt and sharp dissection. Recti muscles were i n the midline, exposing the peritoneum, which was carefully raised and entered. The muscles were div ided down to the attachment on the pelvis. The peritoneum was entered and the incision was extended. The lower uterine segment was exposed. A retractor was placed into the abdomen for visualization. Then, I made an incision above the vesicout erine fold and pushed the bladder out of the operative field bluntly, scored the uterus with a knife and entered bluntly with scissors. Clear amniotic fluid could be seen coming through at this time. I applied a vectis retractor to the infant's head and then with fundal pressure, infant's head was de livered. There was a nuchal cord, which had to be reduced over the head. Then, the body was deliver ed without difficulty. Cord was stripped, clamped and then cut, and the was attended by the p ediatrician who was scrubbed and present at the time of the delivery. Following this, cord blood was taken. Placenta was removed manually. Uterine cavity was cleansed with a clean sponge. Uterus, tubes and ovaries were brought out through the incision. 10 units of Pitocin was injected into the myometrium. The myometrium was then closed in 2 layers. Deep layer was closed with a running chromic gut suture. We had some bleeding on the l eft side of the incisional defect and we had to use horizontal sutures to control the bleeding above the defect and below the defect and we did at least 2 below and at least 2 above to control the bleed ing. Then, after approximating the muscular layer, we approximated the fascial layer with a continuo us interlocking suture of Vicryl. We then inspected the approximation; in all places that were oozy, we did an additional tooceu-gc-uegjr suture of heavy Vicryl. We did approximately 3 additional heav y duty pavbji-sx-rlobl sutures of Vicryl. We carefully inspected everything. Hemostasis was good an d there was another small chromic gut suture that we placed on the right side to control the bleeding . We checked posteriorly in the uterine surface, cleansed the pelvis of all the blood clots and raymundo ris. We then proceeded to do a tubal ligation by identifying each fallopian tube and ligating the tube pro ximally and distally with a plain suture, injecting the broad ligament between the 2 ligatures, disse cting the tube out between the broad ligament, excising it and sending it for pathology, then approxi mating the broad ligament front to back, burying the proximal stump of the tube and exteriorizing the distal. This was done for both the right and left side. Hemostasis was excellent. Following this, we did a careful anatomical approximation of the anterior abdominal wall. Peritoneum was closed with a mattress suture of chromic catgut. Recti muscles were approximated with interrupted chrzpe-hk-rbf ht suture of chromic catgut. The fascia was closed with continuous interlocking suture of Vicryl. S ubcutaneous was approximated in 2 layers. There was a deep layer of plain and then a more superficia l layer of chromic. Following this, skin edges were approximated with staple clips. The patient shannon erated the procedure well and left the OR in good condition. Job ID: [id number]
[2020-11-03] MEDS: LABETALOL HCL 200 MG TAB PO SCH (21:31)
[2020-11-03] MEDS: DOCUSATE SODIUM 100 MG CAP PO SCH (21:31)
[2020-11-04] MEDS ORDERED: MEPERIDINE HCL 50 MG/ML CARP IV PRN (05:10)
[2020-11-04] MEDS ORDERED: PROMETHAZINE HCL 25 MG in SODIUM CHLORIDE 0.9% 50 ML IV PRN (05:10)
[2020-11-04] MEDS ORDERED: oxyCODONE/ACETAMINOPHEN 5mg/325mg TAB PO PRN (05:10)
[2020-11-04] MEDS ORDERED: diphenhydrAMINE Capsule 25 MG CAP PO PRN (05:10)
[2020-11-04] MEDS ORDERED: ONDANSETRON INJ 2 MG/ML 2 ML VIAL IV PRN (05:10)
[2020-11-04] MEDS ORDERED: KETOROLAC 30 MG/ML VIAL IV PRN (05:10)
[2020-11-04] MEDS ORDERED: diphenhydrAMINE 50 MG/ML VIAL IV PRN (05:10)
[2020-11-04 07:06] LABS: Basophils # (auto) 0.02 K/uL (0-0.2); Basophils % (auto) 0.2 %; Eosinophils % (auto) 1.1 %; Hematocrit (blood only) 28.1 % (37-47); Hemoglobin 9.3 g/dL (12.0-16.0); Immature Granulocytes # (auto) 0.02 K/uL (0.00-0.02); Immature Granulocytes % (auto) 0.2 %; Lymphocytes # (auto) 0.86 K/uL (1.2-3.4); Mean Corpuscular Hemoglobin 29.4 pg (25-34); Mean Corpuscular Hgb Conc 33.1 g/dL (32-36); Mean Corpuscular Volume 88.9 fL (80-100); Mean Platelet Volume 10.3 fL (7.4-10.4); Monocytes # (auto) 0.51 K/uL (0.11-0.59); Monocytes % (auto) 5.4 %; Neutrophils # (auto) 8.01 K/uL (1.4-6.5); Neutrophils % (auto) 84.1 %; Platelet Count 179 K/uL (130-400); Red Blood Count 3.16 M/uL (4.2-5.4); White Blood Count 9.52 K/uL (4.8-10.8)
[2020-11-04] MEDS ORDERED: DIPHTHERIA/TETANUS/PERTUSSIS 0.5 ML SYR/VIAL IM ONE (09:00)
[2020-11-04] MEDS: DOCUSATE SODIUM 100 MG CAP PO SCH ×2 (09:06→19:44)
[2020-11-04] MEDS: SIMETHICONE 80 MG CHEW PO SCH ×4 (09:06→19:44)
[2020-11-04] MEDS: PRENATAL VITAMIN 1 TAB PO SCH (09:06)
[2020-11-04] MEDS: FERROUS SULFATE 325 MG TAB PO SCH (09:06)
[2020-11-04] MEDS: LABETALOL HCL 200 MG TAB PO SCH ×2 (09:07→19:45)
--- NOTE | 2020-11-04 09:16 | Obstetrical Progress Note ---
Date of Service November 04, 2020 Assessment & Plan Admission and Anticipated Discharge Date Admission Date: November 03, 2020 Physical Exam Physical Exam: abdomen soft and non tender incision is clean and dry no calf tenderness passing flatus ambulating well vaginal bleeding scant hgb 9.3 Results & Data ([facility]) Vital Signs (Past 12 Hours) Vital Signs Temp Pulse Resp BP Pulse Ox 11/04/20 07:20 36.9 C 85 20 107/64 97 11/04/20 05:10 16 97 11/04/20 04:40 18 97 11/04/20 04:37 36.7 C 77 16 110/66 97 11/04/20 03:40 18 97 11/04/20 02:40 18 98 11/04/20 01:58 20 98 11/04/20 00:40 18 96 11/03/20 23:40 36.6 C 75 16 207/73 H 99 11/03/20 22:49 36.7 C 74 16 99/55 L 98 11/03/20 21:30 16 98
[2020-11-04] MEDS: IBUPROFEN 600 MG TAB PO PRN ×3 (10:26→18:52)
[2020-11-04] MEDS ORDERED: bisacodyL 5 MG TABEC PO SCH (20:00)
[2020-11-05] MEDS: IBUPROFEN 600 MG TAB PO PRN ×2 (01:13→12:31)
[2020-11-05 06:14] LABS: Hematocrit (blood only) 28.6 % (37-47); Hemoglobin 9.1 g/dL (12.0-16.0)
[2020-11-05] MEDS: SIMETHICONE 80 MG CHEW PO SCH ×2 (07:54→12:31)
[2020-11-05] MEDS: FERROUS SULFATE 325 MG TAB PO SCH (07:54)
[2020-11-05] MEDS: DOCUSATE SODIUM 100 MG CAP PO SCH (07:54)
[2020-11-05] MEDS: PRENATAL VITAMIN 1 TAB PO SCH (07:54)
[2020-11-05] MEDS: LABETALOL HCL 200 MG TAB PO SCH (08:04)
--- NOTE | 2020-11-05 10:40 | Obstetrical Progress Note ---
Date of Service November 05, 2020 Assessment & Plan Admission and Anticipated Discharge Date Admission Date: November 03, 2020 Physical Exam Physical Exam: abdomen soft and non tender incision is clean and dry no calf tenderness ambulating well vaginal bleeding scant hgb 9.1 Results & Data ([facility]) Vital Signs (Past 12 Hours) Vital Signs Temp Pulse Resp BP Pulse Ox 11/05/20 07:28 36.8 C 87 20 141/82 H 98 11/04/20 23:13 36.8 C 76 16 121/76 98
--- NOTE | 2020-11-05 12:58 | Discharge Summary (DS) ---
DATE OF ADMISSION: 11/03/2020 DATE OF DISCHARGE: 11/05/2020 Elyssa Evans was followed in our office for care and delivery. She was placed on baby asp irin 1 daily early in her , stopped a few days prior to admission and she also ended up on l abetalol 200 mg t.i.d. Baby aspirin was used because her first was complicated by hyperten kenisha, which required induction at 38 weeks. At this particular , which was managed with labe talol, repeat section was performed at 38 weeks due to the hypertension, and prior to this, she was receiving weekly NSTs. On the day of admission, she was taken to the OR where she underwent repeat low segment section along with bilateral tubal ligation. Her preoperative hemoglobin was 10.0, hematocrit was 31.2 and at the time of discharge, her hemoglobin was 9.1, hematocrit 28.6. Postoperatively, she did well. She remained afebrile, having received prophylactic antibiotics josie or to the surgery and her bowel sounds returned within 24 hours. At the time of discharge, she was am bulating well, eating well. Pain was well controlled with a combination of Motrin and some small dos es of Percocet. She was told to return to the office for removal of emma. She was also told to bing glaser on vitamins with iron due to her anemia. Job ID: [id number]
[2020-11-05] MEDS ORDERED: bisacodyL 10 MG SUPP PR PRN (13:59)
--- NOTE | 2020-11-16 14:05 | Coding Query ---
ANEMIA To promote full compliance with coding requirements relating to patient care, physician participation is requested in all cases of medical coder uncertainty. Please assist us with the question(s) below: Coding Question(s): The record reflects the following clinical findings: The Discharge Summary documents, "Her preoperative hemoglobin was 10.0, hematocrit was 31.2 and at the time of discharge, her hemoglobin was 9.1, hematocrit 28.6. Postoperatively", and, "She was also told to continue on vitamins with iron due to her anemia". If these findings are indicative of anemia, please specify the known or suspected type by placing an "X" within the parenthesis (x). If other, please document type. Examples are: ( ) Acute blood loss anemia ( ) Acute Postoperative blood loss anemia ( ) Acute postoperative anemia due to dilutional fluids ( ) Chronic blood loss anemia ( ) Anemia of chronic disease ( ) Aplastic anemia ( ) Anemia due to renal disease ( ) Anemia in neoplastic disease ( ) Iron deficient anemia ( ) Anemia, unspecified or other ( ) Other: (please specify) ( ) Unable to determine Thank you Mallika Camarillo anemia of MTDD
== END 2020-11-05 12:50 | disposition home or self-care (01) | DRG 785 ==
LOC: 4S1 07:29 → EDSTATUS 11:00 → 4S2 16:24
PROC: M.PPTLD (2020-11-03 09:20)